=== PATIENT | female | born 1995 | race Asian ===

== ENCOUNTER 2019-05-24 17:55 | Emergency (ER) | payer OTHER ==
--- NOTE | 2019-05-24 18:39 | ER Document Report ---
ED Medical Screen (RME) - General Chief Complaint: Other Stated Complaint: IUD ISSUE Time Seen by Provider: 05/24/19 18:32 Notes: Patient is a 23-year-old female who presents to the emergency department with a chief complaint of lower pelvic pain. She has an IUD in and was placed in March. She states that she was intimate with her last night and had intercourse with her last night and her IUD had possibly moved out of [facility]. Since then she has had some pain. Exam: Mildly tender mid lower abdomen. I have greeted and performed a rapid initial assessment of this patient. A comprehensive ED assessment and evaluation of the patient, analysis of test results and completion of medical decision making process will be conducted by an additional ED providers. - Related Data Allergies/Adverse Reactions: antihistamines Allergy (Uncoded 05/24/19 18:32) Physical Exam - Vital signs Vitals: Temp Pulse Resp BP Pulse Ox 98.4 F 87 20 121/68 98 05/24/19 18:00 05/24/19 18:00 05/24/19 18:00 05/24/19 18:00 05/24/19 18:00 Course - Vital Signs Vital signs: Temp Pulse Resp BP Pulse Ox 98.4 F 87 20 121/68 98 05/24/19 18:00 05/24/19 18:00 05/24/19 18:00 05/24/19 18:00 05/24/19 18:00
--- NOTE | 2019-05-24 19:28 | RADIOLOGY REPORT (SQ) ---
EXAM DESCRIPTION: U/S NON OB PEL TV W/DOPPLER COMPLETED DATE/TIME: 05/24/2019 7:08 pm REASON FOR STUDY: eval IUD/pelvic pain COMPARISON: None. TECHNIQUE: Dynamic and static grayscale images acquired of the pelvis via transabdominal and transva ginal approach and recorded on PACS. Additional selected color Doppler and spectral images recorded. LIMITATIONS: None. FINDINGS: UTERUS: Contour normal. No mass. IUD is present in the fundal endometrial cavity. ENDOMETRIAL STRIPE: No focal or generalized thickening. No masses. CERVIX: No nabothian cysts. RIGHT OVARY AND DOPPLER: Normal size. No worrisome masses. Multiple follicles. Normal arterial vasc ular flow without evidence for torsion. LEFT OVARY AND DOPPLER: Normal size. No worrisome masses. Multiple follicles. Normal arterial vasc ular flow without evidence for torsion. FREE FLUID: None noted. OTHER: No other significant finding. MEASUREMENTS: UTERUS: 8.1 x 4.2 x 3.0 cm ENDOMETRIAL STRIPE: 1.5 mm. IUD present in the endometrial cavity. RIGHT OVARY: 3.3 x 2.2 x 2.1 cm LEFT OVARY: 3.2 x 1.9 x 2.1 cm IMPRESSION: 1. No ultrasound abnormality of the pelvis to explain pain. 2. IUD is present in the fundal endometrial cavity. TECHNICAL DOCUMENTATION: JOB ID: [id number] [employer]- All Rights Reserved Rev-10/15 Reading location - IP/workstation name: [email or web address]
--- NOTE | 2019-05-24 20:29 | ER Document Report ---
ED GI/ - General Chief Complaint: Pelvic Pain Stated Complaint: IUD ISSUE Time Seen by Provider: 05/24/19 18:32 Notes: Patient is a 23-year-old female that comes to the emergency department for chief complaint of pelvic cramping and intermittent vaginal bleeding. She states last night she had sexual intercourse, she states her complained of feeling something hard and painful, she states she is concerned her IUD is out of place. She had her IUD placed last month by [employer] [facility]. She denies nausea or vomiting, fever chills, she reports small amount of whitish vaginal discharge. She denies dysuria or flank pain. She denies dizziness, passing out. She denies any daily medications or diagnosed medical history other than peptic ulcers. TRAVEL OUTSIDE OF THE [place] IN LAST 30 DAYS: No - Related Data Allergies/Adverse Reactions: antihistamines Allergy (Uncoded 05/24/19 18:32) Past Medical History - General Information source: Patient - Social History Smoking Status: Never Smoker Chew tobacco use (# tins/day): No Frequency of alcohol use: None Drug Abuse: None Lives with: Family Family History: Reviewed & Not Pertinent Patient has suicidal ideation: No Patient has homicidal ideation: No GI Medical History: Reports: Hx Ulcer Surgical Hx: Negative - Immunizations Immunizations up to date: Yes Hx Diphtheria, Pertussis, Tetanus Vaccination: Yes Review of Systems - Review of Systems Constitutional: No symptoms reported EENT: No symptoms reported Cardiovascular: No symptoms reported Respiratory: No symptoms reported Gastrointestinal: See HPI Genitourinary: See HPI Female Genitourinary: See HPI Musculoskeletal: No symptoms reported Skin: No symptoms reported Hematologic/Lymphatic: No symptoms reported Neurological/Psychological: No symptoms reported Physical Exam - Vital signs Vitals: Temp Pulse Resp BP Pulse Ox 98.4 F 87 20 121/68 98 05/24/19 18:00 05/24/19 18:00 05/24/19 18:00 05/24/19 18:00 05/24/19 18:00 - Notes Notes: GENERAL: Alert, interacts well. No acute distress. HEAD: Normocephalic, atraumatic. EYES: Pupils equal, round, and reactive to light. Extraocular movements intact. ENT: Oral mucosa moist, tongue midline. Oropharynx unremarkable. Airway patent. LUNGS: Clear to auscultation bilaterally, no wheezes, rales, or rhonchi. No respiratory distress. HEART: Regular rate and rhythm. No murmur ABDOMEN: Soft, non-tender. Non-distended. Bowel sounds present in all 4 quadrants. GENITOURINARY: No concerning findings externally. Speculum exam showing minimal vaginal discharge, unremarkable cervix, strings in place, IUD is not visible otherwise, no cervical motion tenderness. Exam performed with Lacei RN at bedside. EXTREMITIES: Moves all 4 extremities spontaneously. No edema, normal radial and dorsalis pedis pulses bilaterally. No cyanosis. BACK: no cervical, thoracic, lumbar midline tenderness. No saddle anesthesia, normal distal neurovascular exam. Moves all extremities in full range of motion. NEUROLOGICAL: Alert and oriented x3. Normal speech. Cranial nerves II through XII grossly intact. PSYCH: Normal affect, normal mood. SKIN: Warm, dry, normal turgor. No rashes or lesions noted. Course - Re-evaluation Re-evalutation: Patient's abdomen is soft and benign, speculum exam unremarkable with visible strings but no concerning findings, wet mount nonspecific, gonorrhea and Chlamydia negative. CBC, chemistry unremarkable. Ultrasound reviewed and shows IUD in place with no concerning findings. test negative. Discussed with patient at length. Patient states satisfaction with findings, states she will follow close with [facility] and return if she worsens. This was discussed. Stable at time of discharge. - Vital Signs Vital signs: Temp Pulse Resp BP Pulse Ox 98.0 F 81 16 104/61 100 05/24/19 22:50 05/24/19 22:50 05/24/19 22:50 05/24/19 22:50 05/24/19 22:50 - Laboratory Result Diagrams: 05/24/19 19:05 05/24/19 19:05 Laboratory results interpreted by me: 05/24/19 05/24/19 19:05 20:45 AST 40 H Urine Protein 100 H Discharge - Discharge Clinical Impression: Pelvic cramping, Vaginal bleeding Condition: Stable Disposition: HOME, SELF-CARE Additional Instructions: Your work-up including ultrasound, laboratory work-up, and pelvic swabs do not show any concerning findings. There is no cyst, IUD appears to be in the correct place. Take the anti-inflammatory as prescribed for cr amping/bleeding/pain, follow-up with [facility] for additional management. Return for any concerning symptoms including heavy bleeding, dizziness, severe pain, vomiting, fever, or any other concerning symptoms. Prescriptions: Naproxen 500 mg PO BID PRN #20 tablet PRN Reason:
[2019-05-24 21:06] LABS: CHLAM PCR NOT DETECTED (NOT DETECT)
[2019-05-24 21:31] LABS: AMORPHOUS SEDIMENT,URINE TRACE /HPF; APPEARANCE,URINE CLOUDY; BILIRUBIN,URINE NEGATIVE (NEGATIVE); COLOR,URINE YELLOW; GLUCOSE, URINE NEGATIVE (NEGATIVE); KETONES,URINE NEGATIVE (NEGATIVE); LEUKOCYTE ESTERASE,URINE NEGATIVE (NEGATIVE); NITRITE,URINE NEGATIVE (NEGATIVE); PROTEIN,URINE 100 mg/dL (NEGATIVE); URINE SPECIFIC GRAVITY 1.026; UROBILINOGEN,URINE NEGATIVE mg/dL (<2.0)
[2019-05-24 21:35] LABS: ALBUMIN 4.3 g/dL (3.5-5.0); ALKALINE PHOSPHATASE 75 U/L (38-126); ANION GAP 12 (5-19); ASPARTATE AMINO TRANSFERASE 40 U/L (14-36); BILIRUBIN,DIRECT 0.1 mg/dL (0.0-0.4); BILIRUBIN,TOTAL 0.4 mg/dL (0.2-1.3); BLOOD UREA NITROGEN 16 mg/dL (7-20); CALCIUM 9.4 mg/dL (8.4-10.2); CARBON DIOXIDE 29 mmol/L (22-30); CHLORIDE 101 mmol/L (98-107); GLUCOSE 78 mg/dL (75-110); POTASSIUM 3.8 mmol/L (3.6-5.0); TOTAL PROTEIN 7.7 g/dL (6.3-8.2)
[2019-05-24 21:35] LABS: T.VAGINALIS (WET MOUNT) NO TRICHOMONAS SEEN; WBCS (WET MOUNT) 1+ WBCS SEEN; YEAST (WET MOUNT) NO YEAST SEEN
[2019-05-24 21:51] LABS: ABSOLUTE EOSINOPHILS # (AUTO) 0.2 10^3/uL (0.0-0.6); ABSOLUTE LYMPHOCYTES (AUTO) 1.8 10^3/uL (0.5-4.7); ABSOLUTE MONOCYTES (AUTO) 0.4 10^3/uL (0.1-1.4); ABSOLUTE NEUT (AUTO) 4.3 10^3/uL (1.7-8.2); BASOPHILS % (AUTO) 0.5 % (0-2); EOSINOPHILS % (AUTO) 2.8 % (0-6); HEMATOCRIT 42.6 % (36.0-47.0); HEMOGLOBIN 14.3 g/dL (12.0-15.5); LYMPHOCYTES % (AUTO) 26.3 % (13-45); MEAN CORPUSCULAR HEMOGLOBIN 29.2 pg (27.0-33.4); MEAN CORPUSCULAR HGB CONC 33.5 g/dL (32.0-36.0); MEAN CORPUSCULAR VOLUME 87 fl (80-97); MONOCYTES % (AUTO) 6.7 % (3-13); PLATELET COUNT 231 10^3/uL (150-450); RED BLOOD COUNT 4.88 10^6/uL (3.72-5.28); RED CELL DISTRIBUTION WIDTH 13.2 % (11.5-14.0); SEGMENTED NEUTROPHILS % (AUTO) 63.7 % (42-78); TOTAL CELLS COUNTED % (AUTO) 100 %; WHITE BLOOD COUNT 6.7 10^3/uL (4.0-10.5)
[2019-05-24 22:50] VITALS: BP 104/61
== END 2019-05-24 22:50 | disposition home or self-care (01) ==
LOC: ER 17:55
DX: R10.2 Pelvic and perineal pain (principal); N93.9 Abnormal uterine and vaginal bleeding, unspecified; Z97.5 Presence of (intrauterine) contraceptive device; Z88.8 Allergy status to other drugs, medicaments and biological substances
CPT/HCPCS: 36415; 76830; 80053; 81001; 84703; 85025; 87210; 87491; 87591; 93976; 99284